=== PATIENT | male | born 1980 | race Caucasian/White ===

== ENCOUNTER → 2019-06-09 14:11 | Outpatient (CLI) | payer OTHER, SELFPAY ==
--- NOTE | 2019-06-09 14:16 | XR_ITS ---
PROCEDURE: XR SHOULDER RT MIN 2V CLINICAL INDICATION: ACUTE PAIN OF RIGHT SHOULDER COMPARISON: No exams were available for comparison FINDINGS: There is no acute fracture dislocation or other focal bony lesion. Joint spaces are preserved. IMPRESSION: No acute findings. Dictated by: Shine Villanueva 06/09/2019 14:59 Electronically signed by Shine Villanueva in [place] 06/09/2019 14:59
== END ==
PROVIDERS: Visit Provider Nurse Practitioner Family
DX: M25.511 Pain in right shoulder (principal)
CPT/HCPCS: 73030

== ENCOUNTER 2020-02-15 13:58 | Emergency (ER) | payer OTHER, SELFPAY ==
[2020-02-15 14:16] VITALS: BP 147/89; PULSE 71; RESP 18; TEMP 36.6; O2SAT 99; BMI 28.5
--- NOTE | 2020-02-15 14:24 | HMH.EDUTC ---
[facility] [place] Disposition Clinical Impression: Strep throat Disposition: Home, Self-Care Condition on Discharge: Good Instructions: Preventing the Spread of Coronavirus Discharge Instructions, DI for Strep Throat Additional Instructions: *Monitor Temp, Over the counter Motrin or Tylenol as directed/as needed Tylenol every 4 hours and Motrin every 6 hours (as long as your family doctor has told you that you can take it) for fever or pain. and straight to ER if unable to lower temp less than 101.0 after medication given *Warm salt water gargles may help to soothe the throat *Throat Lozenges *Warm fluids like tea with honey may help to soothe the throat *Sleep elevated *Humidifier/Vaporizer *If you did not take Penicillin shot or was unable to, start taking antibiotic immediately and make sure that you take it for the FULL length of time although you should start to feel better in 24-48 hours *change toothbrush and toothpaste 24-48 hours after starting to take antibiotics so you do not reinfect yourself Monitor Temp. Tylenol and/or Ibuprofen as needed. ER if fever is no less than 101 despite alternating Tylenol and Ibuprofen * Encourage fluids, water, Gatorade, powerade, pedialyte if /toddler/or child *Cold fluids, popsicles and ice cream may feel good on his throat Follow up IMMEDIATELY for new or worsening symptoms or no Noticeable improvement over the next 48-72 hours. 911 for difficulty breathing or swallowing You were tested for today for COVID19 your test result should be back in the next 24-48 hours, you may call to the [facility] to see if your test results are back in the next 48 hours [phone] [facility] hours are 9am-9pm You was given a handout with instructions for Self Quarantine and Self isolation for while you wait on test results and what to do if they are positive If you are positive the Health Dept will be contacting you also Prescriptions: Amoxicillin [Amoxicillin 500mg Cap] 500 mg PO BID 10 Days #20 cap Transmission Status: Pending to [facility] Referrals: Mario Scott APRN [Primary Care Provider] - As needed Time of Disposition: 14:53 Medical Decision Making - Patrick Inquiry Pt receiving controlled substance: No Patrick was queried for this patient: No Vital Signs: 02/15/20 14:16 Temperature 97.8 F Temperature Source Oral Pulse Rate [Radial] 71 Respiratory Rate 18 Blood Pressure [Right Arm] 147/89 H Blood Pressure Mean [Right Arm] 108 Blood Pressure Source [Right Arm] Automatic Cuff Blood Pressure Position [Right Arm] Sitting 02 Sat by Pulse Oximetry 99 Oxygen Delivery Method Room Air - Lab Data Lab results reviewed: Yes: I reviewed the patient's lab results. Orders (Tests/Meds): ORDERS Category Date Time Status Covid-19 Nasal PCR Sendout [facility] Stat [facility] 02/15/20 14:17 Ordered [facility] [place] HPI - General Stated complaint: weakness, soa Time Seen by Provider: 02/15/20 14:24 Mode of Arrival: Ambulatory Source of Information: Patient Limitations: No Limitations Description of Symptoms (Recalled from Triage Doc. by RN): weak, slight heavy breathing x 2 days HEENT Symptoms (Recalled from RN notes): Yes Resp Symptoms (Recalled from RN notes): No Skin Symptoms (Recalled from RN notes): No MS Symptoms (Recalled from RN notes): No Functional Status (Recalled from RN notes): wnl - History of Present Illness Provider Complaint: Patient state that he has been feeling weak, tired and achy all over State that the last time he felt like this he had the flu States that he hasnt had any fever or shortness of breath but last night felt like he a little burning in his throat and chest area like he had before with bronchitis. Denies chest pain denies shortness of breath - Related Data Previous Rx's Medication Instructions Recorded Amoxicillin [Amoxicillin 500mg 500 mg PO BID 10 Days #20 cap 02/15/20 Cap] cetirizine 10 mg tablet 10 mg PO DAILY #30 tab 02/15/20 montelukast 10 mg tablet
[2020-02-15 15:02] VITALS: BP 147/89; PULSE 71; RESP 18; TEMP 36.6; O2SAT 99
[2020-02-15 20:17] LABS: UTC Strep Screen (Rapid) Positive (Negative)
[2020-02-15 20:18] LABS: UTC Influenza A Antigen Negative (Negative); UTC Influenza B Antigen Negative (Negative)
[2020-02-17 12:39] LABS: Covid-19 Nasal PCR Sendout Lex Not Detected
== END 2020-02-15 15:05 | disposition home or self-care (01) ==
PROVIDERS: Emergency Provider Nurse Practitioner; PCP Nurse Practitioner Family
DX: J02.0 Streptococcal pharyngitis (principal); Z20.828 Contact with and (suspected) exposure to other viral communicable diseases
CPT/HCPCS: 87804; 87880; 99202; U0004

== ENCOUNTER 2021-02-13 17:30 | Emergency (ER) | payer OTHER, SELFPAY ==
[2021-02-13 17:50] VITALS: BP 146/91; PULSE 82; RESP 22; TEMP 37.4; O2SAT 100; BMI 32.8
[2021-02-13 18:02] LABS: UTC Strep Screen (Rapid) Positive (Negative)
--- NOTE | 2021-02-13 18:10 | HMH.EDUTC ---
[facility] [place] Clinical Impression: Strep throat Disposition: Home, Self-Care Condition on Discharge: Good Instructions: Strep Throat, DI for Strep Throat, Amoxicillin Additional Instructions: *Monitor Temp, Over the counter Motrin or Tylenol as directed/as needed Tylenol every 4 hours and Motrin every 6 hours (as long as your family doctor has told you that you can take it) for fever or pain. and straight to ER if unable to lower temp less than 101.0 after medication given *Warm salt water gargles may help to soothe the throat *Throat Lozenges *Warm fluids like tea with honey may help to soothe the throat *Sleep elevated *Humidifier/Vaporizer *If you did not take Penicillin shot or was unable to, start taking antibiotic immediately and make sure that you take it for the FULL length of time although you should start to feel better in 24-48 hours *change toothbrush and toothpaste 24-48 hours after starting to take antibiotics so you do not reinfect yourself Monitor Temp. Tylenol and/or Ibuprofen as needed. ER if fever is no less than 101 despite alternating Tylenol and Ibuprofen * Encourage fluids, water, Gatorade, powerade, pedialyte if /toddler/or child *Cold fluids, popsicles and ice cream may feel good on his throat Follow up IMMEDIATELY for new or worsening symptoms or no Noticeable improvement over the next 48-72 hours. 911 for difficulty breathing or swallowing Prescriptions: Amoxicillin [Amoxicillin 875MG Tab] 875 mg PO Q12H #20 tab Transmission Status: Pending to [facility] Fluticasone Propionate [Flonase 50mcg nasal spray 16gm] 1 spr NS DAILY #1 each Transmission Status: Pending to [facility] methylPREDNISolone [Medrol 4mg tab] 4 mg PO DIRECTED #21 tab Transmission Status: Pending to [facility] Referrals: Mario Scott APRN [Primary Care Provider] - Time of Disposition: 18:18 Medical Decision Making - Patrick Inquiry Pt receiving controlled substance: No Patrick was queried for this patient: No Vital Signs: 02/13/21 17:50 Temperature 99.3 F Temperature Source Oral Pulse Rate [Left] 82 Respiratory Rate 22 Blood Pressure [Right Arm] 146/91 H Blood Pressure Mean [Right Arm] 109 02 Sat by Pulse Oximetry 100 - Lab Data Lab results reviewed: Yes: I reviewed the patient's lab results. Lab Results 02/13/21 17:52: Strep Scn Rapid Clinic Positive A [facility] [place] HPI - General Stated complaint: sore throat,cough Time Seen by Provider: 02/13/21 18:10 Mode of Arrival: Ambulatory Limitations: No Limitations Description of Symptoms (Recalled from Triage Doc. by RN): pt /o nasal drainage, sore throat and weakness x3 days. HEENT Symptoms (Recalled from RN notes): Yes (nasal drainage, sore throat and weak) Resp Symptoms (Recalled from RN notes): No Skin Symptoms (Recalled from RN notes): No MS Symptoms (Recalled from RN notes): No Functional Status (Recalled from RN notes): wnl - History of Present Illness Provider Complaint: Patient state that he has been having sore throat, sinus congestion and drainage and feeling achy State that he feels like he did when he had strep throat before so he came in to get checked - Related Data Previous Rx's Medication Instructions Recorded Amoxicillin [Amoxicillin 500mg 500 mg PO BID 10 Days #20 cap 02/15/20 Cap] cetirizine 10 mg tablet 10 mg PO DAILY #90 tab 03/09/20 montelukast 10 mg tablet See Rx Instructions .ROUTE 10/02/20 .COMPLEX #90 tab Amoxicillin [Amoxicillin 875MG 875 mg PO Q12H #20 tab 02/13/21 Tab] Fluticasone Propionate [Flonase 1 spr NS DAILY #1 each 02/13/21 50mcg nasal spray 16gm] methylPREDNISolone [Medrol 4mg 4 mg PO DIRECTED #21 tab 02/13/21 tab] Allergies Allergy/AdvReac Type Severity Reaction Status Date / Time No Known Allergies Allergy Verified 12/22/19 16:08 - Worker's Comp Is this a Worker's Comp case?: No [facility] History - Hepatitis A Screen Drug use
[2021-02-13 18:47] VITALS: BP 146/91; PULSE 82; RESP 24; TEMP 37.4
== END 2021-02-13 18:49 | disposition home or self-care (01) ==
PROVIDERS: Emergency Provider Nurse Practitioner; PCP Nurse Practitioner Family
DX: J02.0 Streptococcal pharyngitis (principal)
CPT/HCPCS: 87880; 99202; G0463

== ENCOUNTER 2021-04-13 11:54 | Emergency (ER) | payer OTHER, SELFPAY ==
[2021-04-13 11:55] VITALS: BP 141/92; PULSE 72; RESP 18; TEMP 37; O2SAT 98; BMI 32.5
--- NOTE | 2021-04-13 12:17 | HMH.EDUTC ---
[facility] [place] Disposition Clinical Impression: Sinusitis Qualifiers: Sinusitis location: unspecified location Chronicity: acute Recurrence: non-recurrent Qualified Code(s): J01.90 - Acute sinusitis, unspecified Disposition: Home, Self-Care Condition on Discharge: Good Instructions: DI for Sinusitis Additional Instructions: Drink plenty of fluids. Take tylenol or ibuprofen for pain or fever. Take the medications as directed. Follow up with your regular doctor. GO TO THE ER FOR ANY WORSENING SYMPTOMS Don't start the oral steroids until tomorrow, since you had the shot here today. Prescriptions: Amoxicillin/Potassium Clav [Augmentin 875-125 Tablet] 1 tab PO Q12H 10 Days #20 tab Transmission Status: Pending to Clinic Pharm[facility] Benzonatate [Benzonatate 100mg cap] 100 mg PO TIDP PRN #30 cap PRN Reason: Cough Transmission Status: Pending to [facility] methylPREDNISolone [Medrol] 4 mg PO DIRECTED 6 Days #21 packet Transmission Status: Pending to [facility] Referrals: Mario Scott APRN [Primary Care Provider] - Time of Disposition: 12:35 Medical Decision Making - Medical Records Medical records reviewed: No: I reviewed the patient's medical records. - Patrick Inquiry Pt receiving controlled substance: No Vital Signs: 04/13/21 11:55 Temperature 98.6 F Temperature Source Oral Pulse Rate [Right Brachial] 72 Respiratory Rate 18 Blood Pressure [Right Arm] 141/92 H Blood Pressure Mean [Right Arm] 108 Blood Pressure Source [Right Arm] Automatic Cuff Blood Pressure Position [Right Arm] Sitting 02 Sat by Pulse Oximetry 98 Oxygen Delivery Method Room Air [facility] [place] HPI - General Stated complaint: LEON, chest congestion Time Seen by Provider: 04/13/21 12:18 Mode of Arrival: Ambulatory Source of Information: Patient Limitations: No Limitations Description of Symptoms (Recalled from Triage Doc. by RN): PATIENT C/O COUGH AND SINUS CONGESTION SINCE FRIDAY HEENT Symptoms (Recalled from RN notes): Yes Resp Symptoms (Recalled from RN notes): Yes Skin Symptoms (Recalled from RN notes): No MS Symptoms (Recalled from RN notes): No Functional Status (Recalled from RN notes): WNL - History of Present Illness Provider Complaint: He states that for the past 5 days he has had sinus congestion, nasal congestion, and ear pressure. He feels like he has a sinus infection. He denies any known exposure to covid-19. He denies any fever/chills/body aches/ shortness of breath. - Related Data Previous Rx's Medication Instructions Recorded Amoxicillin [Amoxicillin 500mg 500 mg PO BID 10 Days #20 cap 02/15/20 Cap] cetirizine 10 mg tablet 10 mg PO DAILY #90 tab 03/09/20 montelukast 10 mg tablet See Rx Instructions .ROUTE 10/02/20 .COMPLEX #90 tab Amoxicillin [Amoxicillin 875MG 875 mg PO Q12H #20 tab 02/13/21 Tab] Fluticasone Propionate [Flonase 1 spr NS DAILY #1 each 02/13/21 50mcg nasal spray 16gm] methylPREDNISolone [Medrol 4mg 4 mg PO DIRECTED #21 tab 02/13/21 tab] Amoxicillin/Potassium Clav 1 tab PO Q12H 10 Days #20 tab 04/13/21 [Augmentin 875-125 Tablet] Benzonatate [Benzonatate 100mg 100 mg PO TIDP PRN #30 cap 04/13/21 cap] methylPREDNISolone [Medrol] 4 mg PO DIRECTED 6 Days #21 04/13/21 packet Allergies Allergy/AdvReac Type Severity Reaction Status Date / Time No Known Allergies Allergy Verified 12/22/19 16:08 - Worker's Comp Is this a Worker's Comp case?: No H History - Hepatitis A Screen Drug use history?: No High risk sexual behaviors?: No History of sexually transmitted infection?: No Currently employed?: No Childcare worker?: No Do you have indoor plumbing?: Yes Do you have electricity?: Yes Attestation statement:: This patient has been screened for Hepatitis A risk factors. I have reviewed the patient's past medical history: Yes Medical History: Reports:: Anxiety Other Surgeries: Yes: No Previous Surgery - Socia
[2021-04-13 12:33] VITALS: BP 141/92; PULSE 72; RESP 18; TEMP 37; O2SAT 98
== END 2021-04-13 12:42 | disposition home or self-care (01) ==
PROVIDERS: Emergency Provider Nurse Practitioner Family; PCP Nurse Practitioner Family
DX: J01.90 Acute sinusitis, unspecified (principal); U07.1 COVID-19; F41.9 Anxiety disorder, unspecified
CPT/HCPCS: 96372; 99202; C9803; G0463; J0696; U0003; U0005

== ENCOUNTER 2021-06-13 14:12 | Emergency (ER) | payer OTHER, SELFPAY ==
[2021-06-13 14:15] VITALS: BP 146/93; PULSE 89; RESP 19; TEMP 36.6; O2SAT 97; BMI 30.7
--- NOTE | 2021-06-13 14:32 | HMH.EDUTC ---
[facility] [place] Clinical Impression: Fatigue Qualifiers: Fatigue type: unspecified Qualified Code(s): R53.83 - Other fatigue Disposition: Home, Self-Care Condition on Discharge: Good Instructions: Vertigo, DI for Fatigue Additional Instructions: Make sure to use your flonase as prescribed Follow up with your Family Doctor if symptom persist and no improvement Return if needed Monitor blood pressure and record then follow up with your Family Doctor for further treatment and evaluation Straight to ER if any life threatening symptoms Referrals: Mario Scott APRN [Primary Care Provider] - As needed Time of Disposition: 14:51 Medical Decision Making - Patrick Inquiry Pt receiving controlled substance: No Patrick was queried for this patient: No Vital Signs: 06/13/21 14:15 06/13/21 14:50 Temperature 97.9 F 97.9 F Temperature Source Oral Pulse Rate 89 Pulse Rate [Left Brachial] 89 Respiratory Rate 19 19 Blood Pressure 146/93 H Blood Pressure [Left Arm] 146/93 H Blood Pressure Mean [Left Arm] 110 Blood Pressure Source [Left Arm] Automatic Cuff Blood Pressure Position [Left Arm] Sitting 02 Sat by Pulse Oximetry 97 Oxygen Delivery Method Room Air - Lab Data Lab Results 06/13/21 14:22: Group A Strep Rapid Negative 06/13/21 14:22: Influenza Type A Ag Negative, Influenza Type B Ag Negative Orders (Tests/Meds): ORDERS Category Date Time Status Strep Screen Confirmation Stat Micro 06/13/21 14:22 Received [facility] [place]PI - General Stated complaint: weakness, lightheadness Time Seen by Provider: 06/13/21 14:32 Mode of Arrival: Ambulatory Source of Information: Patient Limitations: No Limitations Description of Symptoms (Recalled from Triage Doc. by RN): PATIENT C/O WEAKNESS AND FEELING LIGHT-HEADED X 2-3 DAYS HEENT Symptoms (Recalled from RN notes): Yes Resp Symptoms (Recalled from RN notes): No Skin Symptoms (Recalled from RN notes): No MS Symptoms (Recalled from RN notes): No Functional Status (Recalled from RN notes): WNL - History of Present Illness Provider Complaint: Patient states that he has been feeling weak, tired and achy and at times if he stands up quickly he feels a little light headed at times but it has come and gone States that last time he felt like this he had strep throat so he came in to get checked out - Related Data Home Medications Medication Instructions Recorded Confirmed Montelukast Sodium [Singulair] 10 mg PO DAILY 06/13/21 06/13/21 Allergies Allergy/AdvReac Type Severity Reaction Status Date / Time No Known Allergies Allergy Verified 12/22/19 16:08 - Worker's Comp Is this a Worker's Comp case?: No H History - Hepatitis A Screen Drug use history?: No High risk sexual behaviors?: No History of sexually transmitted infection?: No Currently employed?: No Childcare worker?: No Do you have indoor plumbing?: Yes Do you have electricity?: Yes Attestation statement:: This patient has been screened for Hepatitis A risk factors. I have reviewed the patient's past medical history: Yes Medical History: Reports:: Anxiety Other Surgeries: Yes: No Previous Surgery - Social History Smoking Status: Never smoker Alcohol Intake: never Occupational Status: other Housing: house - Psychiatric History Pschychiatric History:: Reports:: Anxiety ROS Obtained: Yes All systems reviewed & no additional complaints, Yes Systems reviewed as appropriate & no additional complaints - Constitutional Constitutional: Reports system reviewed and no additional complaints, except as docu, Reports body ache, Reports chills, Reports fatigue - ENT Ears, Nose, Mouth, and Throat: Reports system reviewed and no additional complaints, except as docu, Reports dizziness - Cardiovascular Cardiovascular: Reports system reviewed and no additional complaints, except as docu - Respiratory Respiratory: Reports system reviewed and no additional complaints, except as doc
[2021-06-13 14:33] LABS: UTC Influenza A Antigen Negative (Negative)
[2021-06-13 14:34] LABS: UTC Influenza B Antigen Negative (Negative)
[2021-06-13 14:36] LABS: Strep Scrn Group A (Rapid) Negative (Negative)
[2021-06-13 14:50] VITALS: BP 146/93; PULSE 89; RESP 19; TEMP 36.6; O2SAT 97
== END 2021-06-13 14:53 | disposition home or self-care (01) ==
PROVIDERS: Emergency Provider Nurse Practitioner; PCP Nurse Practitioner Family
DX: R42 Dizziness and giddiness (principal); R53.1 Weakness; R53.83 Other fatigue; F41.9 Anxiety disorder, unspecified; Z79.51 Long term (current) use of inhaled steroids; Z79.52 Long term (current) use of systemic steroids; Z79.899 Other long term (current) drug therapy
CPT/HCPCS: 87430; 87804; 99213; G0463

== ENCOUNTER 2021-08-21 10:18 | Emergency (ER) | payer OTHER, SELFPAY ==
[2021-08-21 10:40] VITALS: BP 172/89; PULSE 76; RESP 17; TEMP 36.6; O2SAT 100; BMI 21.4
--- NOTE | 2021-08-21 11:09 | HMH.EDUTC ---
[facility] [place] [facility] [place] Clinical Impression: Bronchitis Sinusitis Qualifiers: Sinusitis location: unspecified location Chronicity: unspecified Qualified Code(s): J32.9 - Chronic sinusitis, unspecified Disposition: Home, Self-Care Condition on Discharge: Good Instructions: Sinusitis, DI for Sinusitis Additional Instructions: ? Start antibiotic today. Be sure to complete entire prescription even if feeling better ? Monitor temp. Tylenol every 4 hours as needed and / or ibuprofen every 6 hours as needed ( As long as your primary care physician has told you that it ok to take both. For fever/aches/pains ER if no less than 101 despite Tylenol or Motrin ? Humidifier/vaporizer or hot steamy shower ? Mucinex during the day for your cough and cough suppressant only at night. Be sure to drink lots of water. Insurance may not cover a prescriptions for mucinex. Might be cheaper to get 400mg tablets and take 2 tablet in the morning, mid-day and evening with lots of water. *Tessalon Perles will not cause drowsiness but use at bedtime to help stop cough so that you may get some rest. *Start steroid today. Helps with inflammation therefore, cough and wheezing. Follow directions on the package. Reviewed side effects. Patient reports taking them before. Follow up IMMEDIATELY for new or worsening of symptoms OR no noticeable improvement over the next 48-72 hours. 911 immediately for any life threatening symptoms such as chest pain or difficulty breathing Prescriptions: Benzonatate [Benzonatate 100mg cap] 100 mg PO Q8HP PRN #15 cap PRN Reason: Cough Transmission Status: Pending to [facility] Fluticasone Propionate [Flonase 50mcg nasal spray 16gm] 1 - 2 spr NS DAILY #1 each Transmission Status: Pending to [facility] predniSONE [Prednisone 20mg Tab] 20 mg PO BID 5 Days #10 tab Transmission Status: Pending to [facility] Azithromycin [Z-Enrico 250mg Tab] 250 mg PO DIRECTED #6 tab Transmission Status: Pending to [facility] Referrals: Mario Scott APRN [Primary Care Provider] - As needed Time of Disposition: 11:20 Medical Decision Making - Patrick Inquiry Pt receiving controlled substance: No Patrick was queried for this patient: No Vital Signs: 08/21/21 10:40 Temperature 97.8 F Temperature Source Oral Pulse Rate [Left Radial] 76 Respiratory Rate 17 Blood Pressure [Right Arm] 172/89 H Blood Pressure Mean [Right Arm] 116 02 Sat by Pulse Oximetry 100 [facility] [place] [facility] [place] HPI - General Stated complaint: congestion Time Seen by Provider: 08/21/21 11:09 Description of Symptoms (Recalled from Triage Doc. by RN): patient comes in for congestion and watery eyes. patient states that he has bad allergies, but nothing has been helping. HEENT Symptoms (Recalled from RN notes): Yes Resp Symptoms (Recalled from RN notes): Yes Skin Symptoms (Recalled from RN notes): No MS Symptoms (Recalled from RN notes): No Functional Status (Recalled from RN notes): wnl - History of Present Illness Provider Complaint: Patient states that he has been having sinus congestion and pressure and feels like it is trying to move into his chest area States that he isnt cough much up States that he has been having itchy watery eyes too and thought it may be his allergies but it has continued to get worse and worried it may turn into pneumonia if he didnt come in - Related Data Home Medications Medication Instructions Recorded Confirmed Cetirizine HCl 10 mg PO DAILY 08/21/21 08/21/21 Omeprazole 40 mg PO DAILY 08/21/21 08/21/21 Previous Rx's Medication Instructions Recorded amoxicillin 875 mg tablet 875 mg PO BID #20 tab 06/21/21 fluticasone propionate 50 1 spray INTRANASAL DAILY #16 g 06/21/21 mcg/actuation nasal spray,suspension montelukast 10 mg tablet 10 mg PO DAILY #90 tab 06/21/21 prednisone 20 mg tablet 20 mg PO BID #10 tab 06/21/21 pseudoephedrine HCl 240 mg 240 mg PO DAILY PRN #10 tab 06/21/21 tablet,extended
[2021-08-21 11:25] VITALS: BP 172/89; PULSE 76; RESP 17; TEMP 36.6
== END 2021-08-21 11:26 | disposition home or self-care (01) ==
PROVIDERS: Emergency Provider Nurse Practitioner; PCP Nurse Practitioner Family
DX: J32.9 Chronic sinusitis, unspecified (principal); J30.9 Allergic rhinitis, unspecified; F41.9 Anxiety disorder, unspecified; Z79.51 Long term (current) use of inhaled steroids; Z79.52 Long term (current) use of systemic steroids; Z79.899 Other long term (current) drug therapy
CPT/HCPCS: 99213; G0463

== ENCOUNTER → 2022-03-04 08:56 | Outpatient (CLI) | payer OTHER, SELFPAY ==
--- NOTE | 2022-03-04 08:56 | US_ITS ---
FINAL REPORT CLINICAL HISTORY: epigastric pain FINDINGS: Sonographic images of the abdomen were obtained. The liver has an unremarkable appearance with normal echogenicity. There is fatty infiltration of the liver. There is no evidence of biliary ductal dilatation. The common hepatic duct measures 3 mm, which is within normal limits. Limited images of the pancreas are unremarkable. The spleen measures in the upper limits of normal in size at 12.3 cm in length. The right kidney measures 10.2 cm in length. The left kidney measures 10.4 cm in length. There is normal renal echogenicity. There is no evidence of hydronephrosis. The aorta has an unremarkable appearance. Limited images of the inferior vena cava are unremarkable. No mass is identified in the region of the palpable abnormality at the xiphoid. IMPRESSION: No mass identified in the region of the palpable abnormality at the xiphoid. Fatty liver. Spleen measures in the upper limits of normal in size. Reviewed, Interpreted and Dictated by Tim Macedo III, MD Transcribed by Yoana Almanza Authenticated and . [facility]
== END ==
PROVIDERS: PCP Emergency Medicine; Visit Provider Student in an Organized Health Care Education/Training Program
DX: R10.13 Epigastric pain (principal)
CPT/HCPCS: 76700

== ENCOUNTER → 2022-07-03 09:58 | Outpatient (CLI) | payer OTHER, SELFPAY ==
--- NOTE | 2022-07-03 10:03 | MR_ITS ---
FINAL REPORT CLINICAL HISTORY: mass right epigastrium, right of xyphoid process, marker placed on area. no trauma. 20ml prohance COMPARISON: None FINDINGS: Multiplanar MR imaging of the chest was performed with and without contrast. Images are degraded by motion artifact. The upper abdomen is obscured by the machine artifact. Marker is placed in the region of the xiphoid at the level of the palpable abnormality. No mediastinal mass or fluid collection identified. No axial mass. No pulmonary mass. No mass or fluid collection identified in the region of the marker at the level of the xiphoid. No abnormal contrast enhancement seen. IMPRESSION: No acute process. Reviewed, Interpreted and Dictated by Tim Macedo III, MD Transcribed by Bushra Sanches Authenticated and [facility]
== END ==
PROVIDERS: PCP Emergency Medicine; Visit Provider Nurse Practitioner Family
DX: R22.2 Localized swelling, mass and lump, trunk (principal)
CPT/HCPCS: 71552; A9576

== ENCOUNTER 2022-08-27 16:39 | Emergency (ER) | payer OTHER, SELFPAY ==
[2022-08-27 16:40] VITALS: BP 139/93; PULSE 76; RESP 18; TEMP 36.8; O2SAT 98; BMI 32.3
[2022-08-27 17:03] LABS: UTC Strep Screen (Rapid) Negative (Negative)
--- NOTE | 2022-08-27 17:58 | EXP.UTC ---
Discharge Plan Disposition Patient Disposition: Home, Self-Care Condition: Good Prescriptions Prescriptions: New benzonatate 100 mg capsule 100 mg PO TID PRN (Reason: cough) Qty: 30 0RF azithromycin [Zithromax Z-Enrico] 250 mg tablet See Rx Instructions .ROUTE .COMPLEX 5 Days Qty: 6 0RF Rx Instructions: For 250 mg dose pack: take 500 mg today (day 1), then 250 mg for 4 days (days 2-5) methylprednisolone [Medrol (Enrico)] 4 mg tablets,dose pack See Rx Instructions .Route .COMPLEX 6 Days Qty: 21 0RF Rx Instructions: taper pack; polymyxin B sulf-trimethoprim [Polytrim] 10,000 unit- 1 mg/mL drops 2 drp ophthalmic (eye) Q6H 7 Days Qty: 20 0RF Rx Instructions: while awake; do not exceed 6 doses in 24 hours for 7 days No Action amoxicillin-pot clavulanate 875-125 mg tablet 1 tab PO BID 7 Days Qty: 14 0RF methylprednisolone 4 mg tablets,dose pack See Rx Instructions PO PER PKG DIR Qty: 21 0RF Rx Instructions: PO PER PKG DIR omeprazole 40 mg capsule,delayed release(DR/EC) See Rx Instructions .ROUTE .COMPLEX Qty: 90 3RF Dose Instruction: TAKE ONE CAPSULE BY MOUTH EVERY DAY --SWALLOW WHOLE; DO NOT CRUSH, CHEW, DISSOLVE, CUT, OR BREAK-- Rx Instructions: TAKE ONE CAPSULE BY MOUTH EVERY DAY --SWALLOW WHOLE; DO NOT CRUSH, CHEW, DISSOLVE, CUT, OR BREAK-- cetirizine 10 mg tablet See Rx Instructions .ROUTE .COMPLEX Qty: 90 3RF Dose Instruction: TAKE ONE TABLET BY MOUTH EVERY DAY Rx Instructions: TAKE ONE TABLET BY MOUTH EVERY DAY montelukast 10 mg tablet See Rx Instructions .ROUTE .COMPLEX Qty: 90 3RF Dose Instruction: TAKE ONE TABLET BY MOUTH EVERY DAY FOR ALLERGY SYMPTOMS Rx Instructions: TAKE ONE TABLET BY MOUTH EVERY DAY FOR ALLERGY SYMPTOMS fluticasone propionate 120 SPRAY bottle 1 - 2 spr NS DAILY Qty: 1 0RF Referrals Follow up/Referrals: Pako Cruz MD [Primary Care Provider] - See instructions Activity Restrictions/Add. Instructions Additional Instructions/Restrictions: Use drops as prescribed for your eyes wash hands well before and after applying Take medication as prescribed *Monitor Temp, Over the counter Motrin or Tylenol as directed/as needed Tylenol every 4 hours and Motrin every 6 hours (as long as your family doctor has told you that you can take it) for fever or pain. and straight to ER if unable to lower temp less than 101.0 after medication given *Warm salt water gargles may help to soothe the throat *Throat Lozenges? *Warm fluids like tea with honey may help to soothe the throat? *Sleep elevated *Humidifier/Vaporizer Your throat swab was sent for culture. Those results are typically sent to your primary care. Be sure to follow up in 2-3 days with your family doctor/primary care physician if no improvement so they can review those result and treat if necessary. If you don?t have a primary care doctor, I recommend you get one but in the mean time, you will have to return to a walk in clinic Follow up IMMEDIATELY for new or worsening symptoms or no Noticeable improvement over the next 48-72 hours. 911 for difficulty breathing or swallowing Clinical Impressions Clinical Impression: Conjunctivitis, Pharyngitis Instructions Patient Instructions: Sore Throat, Conjunctivitis, DI for Conjunctivitis Discharge ED Provider: Tram Brody [facility] General Stated complaint: weakness, sore throat, drainage Mode of Arrival: Ambulatory Source of Information: Patient Limitations: No Limitations Time Seen by Provider: 08/27/22 17:15 Description of Symptoms (Recalled from Triage Doc. by RN): Complaint of sore throat, sinus drainage, and weakness x 1 week. HEENT Symptoms (Recalled from RN notes): Yes Resp Symptoms (Recalled from RN notes): No Skin Symptoms (Recalled from RN notes): No MS Symptoms (Recalled from RN notes): No Functional Status (Recalled from RN notes): wnl His
[2022-08-27 18:05] VITALS: BP 139/93; PULSE 76; RESP 18; TEMP 36.8; O2SAT 98
== END 2022-08-27 18:09 | disposition home or self-care (01) ==
PROVIDERS: Emergency Provider Nurse Practitioner; PCP Emergency Medicine
DX: J02.9 Acute pharyngitis, unspecified (principal); H10.31 Unspecified acute conjunctivitis, right eye; J30.9 Allergic rhinitis, unspecified
CPT/HCPCS: 87880; 99212; 99214; G0463

== ENCOUNTER 2023-01-12 18:51 | Emergency (ER) | payer OTHER, SELFPAY ==
[2023-01-12 19:00] VITALS: BP 137/72; PULSE 92; RESP 18; TEMP 36.9; O2SAT 99; BMI 33.4
--- NOTE | 2023-01-12 19:13 | EXP.UTC ---
Discharge Plan Disposition Patient Disposition: Home, Self-Care Condition: Good Prescriptions Prescriptions: No Action omeprazole 40 mg capsule,delayed release(DR/EC) See Rx Instructions .ROUTE .COMPLEX Qty: 90 3RF Dose Instruction: TAKE ONE CAPSULE BY MOUTH EVERY DAY --SWALLOW WHOLE; DO NOT CRUSH, CHEW, DISSOLVE, CUT, OR BREAK-- Rx Instructions: TAKE ONE CAPSULE BY MOUTH EVERY DAY --SWALLOW WHOLE; DO NOT CRUSH, CHEW, DISSOLVE, CUT, OR BREAK-- cetirizine 10 mg tablet See Rx Instructions .ROUTE .COMPLEX Qty: 90 3RF Dose Instruction: TAKE ONE TABLET BY MOUTH EVERY DAY Rx Instructions: TAKE ONE TABLET BY MOUTH EVERY DAY montelukast 10 mg tablet See Rx Instructions .ROUTE .COMPLEX Qty: 90 3RF Dose Instruction: TAKE ONE TABLET BY MOUTH EVERY DAY FOR ALLERGY SYMPTOMS Rx Instructions: TAKE ONE TABLET BY MOUTH EVERY DAY FOR ALLERGY SYMPTOMS Referrals Follow up/Referrals: Sonia ([facility]),OSITO Martin [Primary Care Provider] - See instructions Activity Restrictions/Add. Instructions Additional Instructions/Restrictions: Keep the wounds clean and dry. Follow up with your regular doctor. Take the antibiotics as directed and apply the topical antibiotics as directed. Make sure you stay in contact with the health department regarding the health of the dog. Watch the wounds for signs of worsening infection, such as worsening redness, drainage, swelling, etc. GO TO THE ER FOR ANY WORSENING SYMPTOMS Clinical Impressions Clinical Impression: Dog bite of right thigh, Need for Tdap vaccination Instructions Patient Instructions: DI for Dog Bite, Mupirocin, Tetanus, Diphtheria, Pertussis (Tdap) Vaccine Discharge ED Provider: Dayne Nunes [facility] [place] General Stated complaint: Ao11/05@1700 dog bite RT leg Time Seen by Provider: 01/12/23 19:12 History of Present Illness Provider Complaint: He states that he was bit by his neighbors dog on his right thigh just before he came in today. His tetanus immunization is out of date. Related Data Previous Rx's Medication Instructions Recorded cetirizine 10 mg tablet See Rx Instructions .Route 06/25/22 .COMPLEX #90 tabs omeprazole 40 mg capsule,delayed See Rx Instructions .Route 06/25/22 release .COMPLEX #90 caps montelukast 10 mg tablet See Rx Instructions .Route 06/26/22 .COMPLEX #90 tabs Allergies Allergy/AdvReac Type Severity Reaction Status Date / Time No Known Allergies Allergy Verified 01/12/23 19:17 [facility] Disclaimer: The information contained in this section may have been updated after the patient was seen, as this information can be updated by other users. Medical History Allergic rhinitis Social History Smoking Status: Never smoker alcohol intake: never current occupational status: other Travel in the last 8 weeks: None housing: house ROS Obtained: Yes All systems reviewed & no additional complaints except as documented Constitutional Constitutional: Denies chills and Denies fever(s) Eyes Eyes: Denies eye discharge ENT Ears, Nose, Mouth, and Throat: Denies dizziness, Denies otalgia and Denies sore throat Cardiovascular Cardiovascular: Denies chest pain Respiratory Respiratory: Denies shortness of breath, Denies chest congestion, Denies cough, Denies stridor and Denies wheezing Gastrointestinal Gastrointestingal: Denies nausea or vomiting Musculoskeletal Musculoskeletal: Reports system reviewed and no additional complaints, except as documented and Denies arthralgias Integumentary/Breasts Skin/Breast: Reports as per HPI Neurologic Neurologic: Denies dizziness and Denies paresthesias Allergic/Immunologic Allergic/Immunologic: Denies wheezing Physical Exam General General appearance: alert and in no apparent distress Head Head exam: atraumatic, normocephalic and no
[2023-01-12 19:36] VITALS: BP 137/72; PULSE 92; RESP 18; TEMP 36.9; O2SAT 99
== END 2023-01-12 19:36 | disposition home or self-care (01) ==
PROVIDERS: Emergency Provider Nurse Practitioner Family; PCP Nurse Practitioner Family
DX: S71.151A Open bite, right thigh, initial encounter (principal); J30.9 Allergic rhinitis, unspecified; W54.0XXA Bitten by dog, initial encounter; Z23 Encounter for immunization
CPT/HCPCS: 90471; 90715; 96372; 99212; 99214; G0463

== ENCOUNTER 2023-02-08 09:58 | Emergency (ER) | payer OTHER, SELFPAY ==
[2023-02-08 10:25] VITALS: BP 175/91; PULSE 87; RESP 18; TEMP 36.9; O2SAT 96; BMI 33.2
--- NOTE | 2023-02-08 11:13 | EXP.UTC ---
Discharge Plan Disposition Patient Disposition: Home, Self-Care Condition: Good Prescriptions Prescriptions: No Action omeprazole 40 mg capsule,delayed release(DR/EC) See Rx Instructions .ROUTE .COMPLEX Qty: 90 3RF Dose Instruction: TAKE ONE CAPSULE BY MOUTH EVERY DAY --SWALLOW WHOLE; DO NOT CRUSH, CHEW, DISSOLVE, CUT, OR BREAK-- Rx Instructions: TAKE ONE CAPSULE BY MOUTH EVERY DAY --SWALLOW WHOLE; DO NOT CRUSH, CHEW, DISSOLVE, CUT, OR BREAK-- cetirizine 10 mg tablet See Rx Instructions .ROUTE .COMPLEX Qty: 90 3RF Dose Instruction: TAKE ONE TABLET BY MOUTH EVERY DAY Rx Instructions: TAKE ONE TABLET BY MOUTH EVERY DAY montelukast 10 mg tablet See Rx Instructions .ROUTE .COMPLEX Qty: 90 3RF Dose Instruction: TAKE ONE TABLET BY MOUTH EVERY DAY FOR ALLERGY SYMPTOMS Rx Instructions: TAKE ONE TABLET BY MOUTH EVERY DAY FOR ALLERGY SYMPTOMS Referrals Follow up/Referrals: Provider,Referral, MD [Primary Care Provider] - See instructions Activity Restrictions/Add. Instructions Additional Instructions/Restrictions: No sign of a bacterial infection. Likely viral. Viruses can take 7-14 days to run their course. Nasal saline and bulb syringe or nose Nighat to remove nasal drainage to help with nasal congestion. Hard to eat, drink, sleep with nasal congestion so important to keep this cleaned out. Monitor temp. Tylenol or Motrin as needed for pain or fever Encourage fluids, water, Gatorade, Powerade, Pedialyte if /toddler/child Warm salt water gargles Warm fluids Sore throat lozenges Sleep elevated Humidifier/vaporizer Follow-up immediately for new or worsening symptoms or no noticeable improvement over the next 48-72 hours. Clinical Impressions Clinical Impression: Upper respiratory infection Qualifiers: URI type: unspecified viral URI Qualified Code(s): J06.9 - Acute upper respiratory infection, unspecified Instructions Patient Instructions: DI for Viral Upper Respiratory Infection -- Adult Discharge ED Provider: Sonia ([facility] [place] HPI General Stated complaint: sinus pressure,runny nose Mode of Arrival: Ambulatory Source of Information: Patient Limitations: No Limitations Time Seen by Provider: 02/08/23 11:13 Description of Symptoms (Recalled from Triage Doc. by RN): sinus pressure, LEON, and runny nose HEENT Symptoms (Recalled from RN notes): Yes Resp Symptoms (Recalled from RN notes): No Skin Symptoms (Recalled from RN notes): No MS Symptoms (Recalled from RN notes): No Functional Status (Recalled from RN notes): n/a History of Present Illness Provider Complaint: 43 yr old male presents for sinus pressure, LEON, clear nasal drainage and runny nose. pt states he feels its moving to his chest Related Data Previous Rx's Medication Instructions Recorded cetirizine 10 mg tablet See Rx Instructions .Route 06/25/22 .COMPLEX #90 tabs omeprazole 40 mg capsule,delayed See Rx Instructions .Route 06/25/22 release .COMPLEX #90 caps montelukast 10 mg tablet See Rx Instructions .Route 06/26/22 .COMPLEX #90 tabs Allergies Allergy/AdvReac Type Severity Reaction Status Date / Time No Known Allergies Allergy Verified 02/08/23 10:39 Worker's Comp Is this a Worker's Comp case?: No [facility] Disclaimer: The information contained in this section may have been updated after the patient was seen, as this information can be updated by other users. Medical History , [employer]) Allergic rhinitis Social History , [employer]ER) Smoking Status: Never smoker alcohol intake: never current occupational status: other Travel in the last 8 weeks: None housing: house ROS Obtained: Yes All systems reviewed & no additional complaints except as documented Constitutional Constitutional: Reports system reviewed and no additional complaints, except as documented a
[2023-02-08 11:31] VITALS: BP 175/91; PULSE 87; RESP 18; TEMP 36.9; O2SAT 96
== END 2023-02-08 11:31 | disposition home or self-care (01) ==
PROVIDERS: Emergency Provider Nurse Practitioner Family
DX: R51.9 Headache, unspecified (principal); J06.9 Acute upper respiratory infection, unspecified; R09.81 Nasal congestion; R09.82 Postnasal drip; B34.9 Viral infection, unspecified; J30.9 Allergic rhinitis, unspecified
CPT/HCPCS: 96372; 99212; 99214; G0463

== ENCOUNTER 2023-03-13 22:50 | Outpatient (CLI) | payer OTHER, SELFPAY ==
[2023-03-13 13:56] LABS: Adenovirus,PCR Not Detected (NotDetected); Coronavirus 19, PCR Not Detected (NotDetected); Coronavirus 229E Not Detected (NotDetected); Coronavirus NL63 Not Detected (NotDetected); Coronavirus OC43 Not Detected (NotDetected); Coronovirus HKU1,PCR Not Detected (NotDetected); Human Metapneumovirus Not Detected (NotDetected); Influenza A, PCR Not Detected (NotDetected); Influenza AH1, 2009 Not Detected (NotDetected); Influenza AH1, PCR Not Detected (NotDetected); Influenza AH3,PCR Not Detected (NotDetected); Influenza B, PCR Not Detected (NotDetected); Parainfluenza 1, PCR Not Detected (NotDetected); Parainfluenza 3, PCR Not Detected (NotDetected); Parainfluenza 4, PCR Not Detected (NotDetected); Respiratory Syncytial Virus Not Detected (NotDetected); Rhinovirus/Enterovirus Not Detected (NotDetected)
[2023-03-13 15:42] LABS: Parainfluenza 2, PCR Detected (NotDetected)
== END 2023-03-13 23:59 ==
LOC: LAB.DROPOF 22:51
PROVIDERS: PCP Internal Medicine; Visit Provider Internal Medicine
DX: J02.9 Acute pharyngitis, unspecified (principal); R05.1 Acute cough; J12.2 Parainfluenza virus pneumonia
CPT/HCPCS: 87070; 87632; 87635

== ENCOUNTER 2023-10-24 12:25 | Outpatient (CLI) | payer OTHER, SELFPAY ==
--- NOTE | 2023-10-24 12:30 | XR_ITS ---
FINAL REPORT CLINICAL HISTORY: right lower back pain FINDINGS: LUMBAR SPINE Three views demonstrate no acute fracture. There are mild degenerative changes with osteophytes. There is no malalignment. IMPRESSION: Mild degenerative changes. Reviewed, Interpreted and Dictated by Tim Macedo III, MD Transcribed by Yoana Almanza Authenticated and [facility]
== END 2023-10-24 23:59 | disposition home or self-care (01) ==
LOC: RAD 12:26
PROVIDERS: PCP Nurse Practitioner Family; Visit Provider Nurse Practitioner Family
DX: M54.50 Low back pain, unspecified (principal)
CPT/HCPCS: 72100

== ENCOUNTER 2023-11-14 08:00 | Outpatient (RCR) | payer OTHER, SELFPAY ==
--- NOTE | 2023-11-03 13:54 | HMH.PTOPEV ---
PT Outpatient Evaluation Rehab PT Outpatient Evaluation Start: 11/03/23 09:11 Freq: Status: Active Protocol: Document 11/03/23 09:11 HEATHER (Rec: 11/03/23 13:54 HEATHER [id number]) E-signed By Bonita Nunes, PT Outpatient Therapy Subjective History Subjective History Pt is a 43 y/o male who reports onset of right-sided LBP and posterior leg pain 3-4 weeks ago. Pt reports intermittent sharp shooting pain from his posterior hip that radiates to his posterior knee. Pt also reports this sensation as pulling and tight. Pt denies more distal LE symptoms, numbness/tingling or b/b dysfunction. Pt had a lumbar spine xray on 10/24/23 with impression of Mild degenerative changes. Pt reports he is scheduled to have a lumbar spine MRI on 12/31. Pt reports pain is aggravated by transfers, putting on his shoes/socks, bending, lifting and prolonged sitting/standing. Pt reports pain improves with walking and propping his feet up in a recliner. Pt reports he was prescribed muscle relaxers and just finished taking oral steroids which did not improve his symptoms. Pt denies further comorbidities to report. Occupation: [employer] New diagnosis of cancer in past 12 No months? Chief Complaint Pain,Stiff Symptom Type Sharp,Shooting Symptoms Relieved By Rest/Positioning,Ice Symptoms Aggravated By Sitting,Standing,Bending/ Stooping,Lifting Current Functional Limitations Lifting,Housework,Dressing, Driving,Standing,Sitting, Squatting,Recreation Activity, Bending/Stooping Symptom Description Intermittent Level of pain today (0-10) 0 Pain scale - at its best (0-10) 0 Pain scale - at its worst (0-10) 9 Lumbopelvic Eval Posture Lumbar Spine Posture Standing Position Decreased Lordosis Palapation tenderness bilateral lumbar spinal tenderness Yes: L4-5, L5-S1 buttock tenderness Yes: R piriformis Lumbar/Sacral Palpation Findings Tenderness Lumbar/Sacral Palpation Overall Comment 1/4 TTP Accessory Movement L-spine Vertebrae Accessory Movements Central P/A [place] that Elicit Symptoms L4 bilateral L5 bilateral S1 bilateral Range of Motion Lumbar Spine Active Flexion Range of 55 Motion (degrees) Lumbar Spine Active Extension Range of 15 Motion (degrees) Left Lumbar Spine Lateral Flexion Active 20 Range of Motion (degrees) Right Lumbar Spine Lateral Flexion 15 Active Range of Motion (degrees) Manual Muscle Test Bilateral Knee Extension Strength Grade 5 Normal Knee Flexion Strength Grade 5 Normal Hip Flexion Strength Grade 5 Normal Hip Abduction Strength Grade 5 Normal Hip Adduction Strength Grade 5 Normal Hip Extension Strength Grade 4 Good Ankle Dorsiflexion Strength Grade 5 Normal DTR Rt Patellar 1+ Lt Patellar 1+ Altered Sensation Bilateral Comment equal and intact to light touch sensation bilaterally Special Tests Hip Scouring (Quadrant) Test Negative Right Hip Ochoa (KALE) Test Negative Right Sciatic Nerve Tension Test Positive Right Unilateral Straight Leg Raise (Lasegue) Positive Right Test Oswestry Index Section 1 Pain Intensity The pain comes and goes and is severe Section 2 Personal Care (Washing,Dresing) increase the pain and I find it necessary to change my way of doing it Section 3 Lifting I can only lift very light weights at most Section 4 Walking I have some pain when walking but it does not increase with distance Section 5 Sitting Pain prevents me from sitting for more than 10 minutes Section 6 Standing I have some pain on standing, but it does not increase with time Section 7 Sleeping I get pain in bed, but it does not prevent me from sleeping well Section 8 Social Life Pain has restricted my social life and I do not go out often Section 9 Traveling I get extra pain while traveling, but it does not compel me to seek al Section 10 Changing Degreee of Pain My pain is gradually getting worse Score and Risk Level Oswestry Sc 28 Oswestry Risk Level Severe Disability Outpatient Therapy Assessment Impairments Problems/Impairmments Palpation Tenderness,Impaired Range of Motion,Impaired Strength,Impaired Transfers, Impaired Standing,Impaired Sitting,Impaired Driving, Impaired Lifting,Impaired Dressing,Impaired Household Care,Impaired Squatting, Impaired Bending,Impaired Recreational Activities, Impaired Work Activities, Subjective C/O Pain,Impaired Self Care/Self Management Prognosis Rehab Potential Good Clinical Impression Consistent with Diagnosis Yes Short Term Goals Number of Weeks 3 Increase Range of Motion Yes: Improve lumbar flexion AROM to at least 65 Improve Ability to Dress Self Yes: report ability to don shoes/socks I with pain 7/10 or less Improve Oswestry Score Yes: Improve score to 23 or less to improve overall QOL Decrease Subjective C/O Pain Yes: Improve pain at worst to 7/10 to improve overall QOL Improve Self Care/Self Management Yes Patient to be Ind w/ HEP Yes Director Dietetics Department Goals Number of Weeks 6 Increase Range of Motion Yes: Improve lumbar AROM flex to 80, ext & LF to 20-25 Increase Strength Yes: Improve hip/core strength to 4+-5/5 grossly to assist with function Improve Transfers Yes: perform sit to stand transfer with pain 5/10 or less Improve Tolerance 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 Improve Oswestry Score Yes: Improve score to 18 or less to improve overall QOL Decrease Subjective C/O Pain Yes: Improve pain at worst to 5/10 to improve overall QOL Outpatient Therapy Plan of Care Treatment Plan May Include Therapeutic Exercise Including Home Yes Exercise Program Manual Therapy Techniques Yes Neuromuscular Re-education Yes Therapeutic Activities to Return to Yes Previous Functional/Work Level ADL/Self Care Education Yes Mechanical Traction Yes Dry Needling Yes Thermal Modalities Yes Electrical Stimulation Yes Ultrasound/Phonophoresis Yes Iontophoresis Yes Massage Yes Eval/Re-Eval Yes Frequency Times per week 2 Duration Number of Weeks 4-6 Addendums This patient is a candidate for social No or vocational rehab? Patient/Guardian verbally acknowledges Yes understanding of treatment program and consents to further treatment? Patient/Guardian verbally acknowledges Yes understanding of diagnosis, prognosis and goals for treatment? Eval Complexity PT Charges [id number] - Low Complexity Shoulder/Elbow Eval Shoulder Objective Measurements Elbow Objective Measurements PHYSICIAN CERTIFICATION: I certify the specified therapy services for Pako Trinh are required, authorized, and reviewed every 30 days.
== END 2023-11-14 08:05 | disposition home or self-care (01) ==
LOC: PT 08:00
PROVIDERS: Visit Provider Nurse Practitioner Family
DX: M54.50 Low back pain, unspecified (principal)
CPT/HCPCS: 97014; 97110; 97140; 97163; G0283

== ENCOUNTER 2023-11-18 07:57 | Outpatient (CLI) | payer OTHER, SELFPAY ==
--- NOTE | 2023-11-18 07:58 | MR_ITS ---
FINAL REPORT CLINICAL HISTORY: LBP with right LE sciatica COMPARISON: None FINDINGS: Multiplanar MR imaging of the lumbar spine was performed without contrast. On the sagittal T2-weighted images, there is disc degeneration at the L5-S1 level. The vertebral alignment is normal. There is no evidence of fracture. No bony mass is identified. The conus has an unremarkable appearance. No significant canal stenosis is identified. L1-2: No significant central canal stenosis or neuroforaminal narrowing. L2-3: No significant central canal stenosis or neuroforaminal narrowing. L3-4: An annular bulge is present with mild right neural foraminal narrowing. L4-5: An annular bulge is present with severe right and mild left neural foraminal narrowing. L5-S1: An annular bulge is present with a right foraminal extruded disc, which produces right S1 nerve root impingement, moderate right and mild left neural foraminal narrowing. IMPRESSION: Lumbar degenerative change, most severe at the L5-S1 level with a right foraminal extruded disc which impinges on the right S1 nerve root and produces moderate right neural foraminal narrowing. Reviewed, Interpreted and Dictated by Tim Macedo III, MD Transcribed by Peyton Bowman Authenticated and [facility]
== END 2023-11-18 23:59 | disposition home or self-care (01) ==
LOC: RAD 07:58
PROVIDERS: PCP Nurse Practitioner Family; Visit Provider Nurse Practitioner Family
DX: M54.50 Low back pain, unspecified (principal)
CPT/HCPCS: 72148

== ENCOUNTER 2023-11-26 09:25 | Outpatient (POV) | payer OTHER, SELFPAY ==
--- NOTE | 2023-11-26 10:15 | EXP.PAIN.OV ---
HPI Data of Consult Patient: new to practice Consult date: 11/26/23 Requesting Physician: Bonita Gallo APRN Primary Care Provider: Magalis Jackson APRN Consult Narrative Reason for consult: Low back pain, right hip pain, right leg pain History of present illness: Mr. Trinh is a 43 year old male who presents today as a new patient. He is a referral from Stacie Jackson's office. Today he rates his pain a 10 out of 10. Patient states he has pain throughout his low back with radiating symptoms into his right hip and right leg. 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 Patient states he immediately had pain and states that has progressively worsened since. Patient states that he initially did try [id number] medications along with heat and ice and topicals with minimal relief. He states he ended up going to the chiropractor and that it did actually end up helping for about 7 weeks. He states then however the pain came back and he went 2 or 3 times additionally however it made no change to the overall pain. Patient states that he then went to his primary care and that they ended up ordering different medications such as gabapentin, meloxicam, Flexeril and oral steroids. He states he has tried these and he is still struggling to do activities of daily living such as cooking or cleaning or even simple ambulation. Today he is using a cane for assistance. Patient does describe it as a sharp, throbbing, aching sensation that is worse with increased activity. Patient does state that he ended up having to complete physical therapy in order to get the MRI. He states he is scheduled for a neurosurgeon appointment next . Patient is interested in any help we may be able to to provide. He states that the overall low back pain did seem like it moved down into his hip now and radiates down the entire extremity. He is currently managed with gabapentin 100 mg from his PCP. His Patrick has been reviewed and is appropriate. CC: Bonita Gallo APRN [facility] Disclaimer: The information contained in this section may have been updated after the patient was seen, as this information can be updated by other users. Medical History Allergic rhinitis Family History (Updated 11/26/23 @ 10:17 by Nini Breen RN) Other Unknown family medical history Social History (Updated 11/26/23 @ 10:18 by Nini Breen RN) Smoking Status: Never smoker alcohol intake: never current occupational status: other Travel in the last 8 weeks: None housing: house Review of Systems Review of Systems Review of systems:: pertinent systems reviewed and negative unless documented below Review of systems (narrative): Review of Systems: General: No recent weight changes, no fever, no sleep disturbances Respiratory: No cough, no shortness of air, no recurring pulmonary infections Cardiovascular/peripheral vascular: No chest pain, no palpitations, no edema, no shortness of breath Gastrointestinal: No new onset incontinence, normal bowel movements reported Genitourinary: No new onset incontinence Musculoskeletal: Low back pain, right hip pain, right leg pain Psychiatric: [Normal mood/affect] Neurological: [Denies weakness in extremities], [denies balance issues] Meds Home Medications and Allergies Home Medications ?Medication ?Instructions ?Recorded ?Confirmed ?Type cyclobenzaprine 10 mg tablet 10 mg PO HS PRN muscle spasm #30 10/24/23 11/26/23 Rx tabs meloxicam 15 mg tablet 15 mg PO DAILY #30 tabs 10/24/23 11/26/23 Rx gabapentin 100 mg capsule 100 mg PO Q8H 30 days #90 caps 11/12/23 11/26/23 Rx cetirizine 10 mg tablet 10 mg PO DAILY 11/14/23 11/26/23 History losartan 25 mg tablet 25 mg PO DAILY #30 tabs 11/14/23 11/26/23 Rx montelukast 10 mg tablet 10 mg PO DAILY 11/14/23 11/26/23 History omeprazole 40 mg capsule,delayed 40 mg PO DAILY 11/14/23 11/26/23 History release baclofen 10 mg tablet 10 mg PO TID #42 tabs 11/26/23 Rx New Prescriptions to Start Prescriptions: Bonita Ortega Allergies Allergy/AdvReac Type Severity Reaction Status Date / Time No Known Allergies Allergy Verified 11/14/23 09:26 Objective Narrative: Physical Exam: General: Alert and oriented x3, no acute distress, pleasant and cooperative Lungs: Respirations even and unlabored, symmetrical chest expansion Eyes: PERRL Musculoskeletal: Flexion and extension of lumbar [spine] somewhat guarded secondary to pain, [antalgic gait noted] positive right leg raise with decreased sensation to light touch and decreased reflexes Neurological: Speech clear, no gross sensory deficit Additional findings Additional findings: FINDINGS: Multiplanar MR imaging of the lumbar spine was performed without contrast. On the sagittal T2-weighted images, there is disc degeneration at the L5-S1 level. The vertebral alignment is normal. There is no evidence of fracture. No bony mass is identified. The conus has an unremarkable appearance. No significant canal stenosis is identified. L1-2: No significant central canal stenosis or neuroforaminal narrowing. L2-3: No significant central canal stenosis or neuroforaminal narrowing. L3-4: An annular bulge is present with mild right neural foraminal narrowing. L4-5: An annular bulge is present with severe right and mild left neural foraminal narrowing. L5-S1: An annular bulge is present with a right foraminal extruded disc, which produces right S1 nerve root impingement, moderate right and mild left neural foraminal narrowing. IMPRESSION: Lumbar degenerative change, most severe at the L5-S1 level with a right foraminal extruded disc which impinges on the right S1 nerve root and produces moderate right neural foraminal narrowing. Reviewed, Interpreted and Dictated by Tim Macedo III, MD Transcribed by Peyton Bowman Authenticated and [facility] Assessment and Plan *Assessment and plan (1) Degenerative disc disease, lumbar: Status: Acute Category: Medical Code(s): M51.36 - Other intervertebral disc degeneration, lumbar region (2) Lumbar radiculopathy: Status: Acute Category: Medical Code(s): M54.16 - Radiculopathy, lumbar region (3) Lumbar stenosis: Status: Acute Category: Medical Code(s): M48.061 - Spinal stenosis, lumbar region without neurogenic claudication (4) Lumbar nerve root impingement: Status: Acute Category: Medical Code(s): M54.16 - Radiculopathy, lumbar region Plan Patient is experiencing significant pain from his low back down into his right hip and right leg. Patient did have limited range of motion with a positive right leg raise and decreased sensation to light touch. I did discuss with the patient that he may benefit from a right transforaminal epidural steroid injection. Risk and benefits were discussed with patient and he would like to proceed forward with this plan of care. Patient has tried and failed conservative therapy including recent physical therapy and chiropractor therapy as well as continued at home stretching exercise that was physician guided. Patient was counseled to discuss with the neurosurgeon whether or not any contraindications to the injection and if they are doll to call us and we can cancel this. Patient was counseled that a lot of times for back surgery they do want a 3-month window with no steroid use. Patient acknowledges understanding. Patient will be scheduled for a right transforaminal epidural steroid injection L4-L5 and L5-S1 under fluoroscopy. I will also order the patient baclofen 10 mg 3 times daily. Patient has also been given compounded cream and is going to try this. Patient has been instructed to contact the clinic with any concerns before the next appointment. Dr. Begum has reviewed this note and agrees with this plan of care. This note was dictated using voice recognition software and make contain errors or omissions. All injections are used with Lidocaine or Bupivacaine and Depo Medrol.
[2023-11-26 10:17] VITALS: BP 158/89; PULSE 79; RESP 18; O2SAT 98; BMI 31.7
== END 2023-11-26 23:59 | disposition home or self-care (01) ==
PROVIDERS: PCP Nurse Practitioner Family; Visit Provider Nurse Practitioner Family
DX: M51.16 Intervertebral disc disorders with radiculopathy, lumbar region (principal); M48.061 Spinal stenosis, lumbar region without neurogenic claudication
CPT/HCPCS: 99202; G0463

== ENCOUNTER 2024-02-13 09:00 | Outpatient (RCR) | payer OTHER, SELFPAY | END 2024-02-13 23:59 | disposition home or self-care (01) | LOC: PT 09:00 | PROVIDERS: Visit Provider Orthopaedic Surgery | DX: M54.50 Low back pain, unspecified (principal); Z98.890 Other specified postprocedural states | CPT/HCPCS: 97110; 97163 ==

== ENCOUNTER 2024-06-21 16:46 | Outpatient (CLI) | payer OTHER, SELFPAY ==
[2024-06-21 16:58] LABS: Microscopic, Urine URINE MICROSCOPIC (MICROSCOPIC)
[2024-06-21 17:33] LABS: Basophils % 0.4 % (0.1-2.0); Eosinophils # 0.1 K/mm3 (0.0-0.4); Eosinophils % 1.5 % (0.1-12.0); Hematocrit 44.6 % (42.0-52.0); Hemoglobin 15.6 g/dL (14.1-18.0); Lymphocytes # 2.2 K/mm3 (0.7-4.5); Lymphocytes % 31.9 % (10-50); Mean Corpuscular Hemoglobin 29.7 pg (27.0-31.2); Mean Corpuscular Volume 84.8 fl (80-94); Monocytes # 0.4 K/mm3 (0.1-1.0); Monocytes % 5.7 % (1.7-9.3); Neutrophils # 4.1 K/mm3 (1.8-7.8); Neutrophils % 60.2 % (37.0-80.0); Nucleated Red Blood Cells # 0 10^3/uL; Nucleated Red Blood Cells % 0 %; Platelet Count 173 K/mm3 (142-424); Red Blood Count 5.26 M/mm3 (4.60-6.20); Red Cell Distribution Width 12.3 % (11.5-17.5); Red Cell Distribution Width-SD 37.8 fL; White Blood Count 6.8 K/mm3 (4.8-10.8)
[2024-06-21 17:35] LABS: Appearance,Urine CLEAR (Clear); Bilirubin,Urine Negative (Negative); Blood, Urine Negative (Negative); Color,Urine YELLOW (Yellow); Glucose,Urine (UA) Negative (Negative); Ketones,Urine Negative (Negative); Leukocyte Esterase,Urine Negative (Negative); Nitrate,Urine Negative (Negative); Protein,Urine Negative (Negative); Specific Gravity, Urine 1.025 (1.005-1.030); Urobilinogen,Urine 0.2 EU/dl (0.2)
[2024-06-21 17:47] LABS: Total Protein,Urine Random < 5.0 mg/dL (0.0-12.0)
[2024-06-21 18:28] LABS: Albumin Level 5.2 g/dl (3.5-5.0)
[2024-06-21 18:29] LABS: Chloride 104 mmol/L (98-107); Potassium 4.7 mmoL/L (3.5-5.1); Sodium 140 mmol/L (136-145)
[2024-06-21 18:31] LABS: Alanine Aminotransferase 54 U/L (12-78); Albumin/Globulin Ratio 1.7 (1.1-1.8); Alkaline Phosphatase 80 U/L (38-126); Anion Gap 15.7 mEq/L (5-15); Aspartate Amino Transferase 47 U/L (17-59); Bilirubin,Total 1.2 mg/dl (0.2-1.3); Blood Urea Nitrogen 14 mg/dl (9-20); Carbon Dioxide 25 mmol/L (22.0-30.0); Estimated Glomerular Filt Rate 81 ml/min (>60); GFR (African American) 98 ML/MIN (>60); Globulin 3.1 g/dL (1.3-3.2); Iron 107 ug/dL (49-181); Total Protein,Serum 8.3 g/dl (6.3-8.2)
[2024-06-21 18:32] LABS: Chol/HDL Ratio 5.7 (1-3.5); Cholesterol 212 mg/dl (140-200); Glucose 95 mg/dl (74-100); HDL Cholesterol 37 mg/dl (40-60); Triglycerides 228 mg/dl (30-150); VLDL Cholesterol 46 mg/dL (0-40)
[2024-06-21 18:43] LABS: Total Iron Binding Capacity 398 ug/dL (261-462)
[2024-06-21 18:46] LABS: Direct LDL Cholesterol 125.88 mg/dL (100-129)
[2024-06-21 19:00] LABS: Hepatitis C Ab Qual. W/ RFX NEGATIVE (Negative)
[2024-06-21 19:12] LABS: HIV Combo NEGATIVE (Negative)
[2024-06-21 19:14] LABS: Thyroid Stimulating Hormone 1.57 uIU/mL (0.465-4.68)
[2024-06-21 19:16] LABS: Ferritin 153 ng/ml (17.9-464)
[2024-06-21 19:22] LABS: 25-OH Vitamin D, Total 41.5 ng/mL (30-100)
[2024-06-21 19:26] LABS: Free T4 (Free Thyroxine) 0.96 ng/dl (0.78-2.19)
[2024-06-21 20:13] LABS: Vitamin B12 615 pg/mL (239-931)
== END 2024-06-21 23:59 | disposition home or self-care (01) ==
LOC: RT 16:46
PROVIDERS: PCP Internal Medicine; Visit Provider Nurse Practitioner Family
DX: R00.2 Palpitations (principal); R42 Dizziness and giddiness; I10 Essential (primary) hypertension; R53.83 Other fatigue; J02.9 Acute pharyngitis, unspecified; Z68.31 Body mass index [BMI] 31.0-31.9, adult; Z11.4 Encounter for screening for human immunodeficiency virus [HIV]; Z11.59 Encounter for screening for other viral diseases; Z13.1 Encounter for screening for diabetes mellitus
CPT/HCPCS: 80053; 80061; 81001; 82306; 82607; 82728; 83036; 83540; 83550; 84156; 84439; 84443; 85025; 86803; 87070; 87086; 87389; 93225; 93227

== ENCOUNTER 2024-07-01 13:45 | Outpatient (CLI) | payer OTHER, SELFPAY ==
--- NOTE | 2024-07-01 | CA_ITS ---
APPROVED REPORT EXAM: Comprehensive 2D, Doppler, and color-flow Echocardiogram Roentgenologist: Jacy Alberto RT(R) Ht: 5 ft 10 in Wt: 219lbs BSA: 2.17 BP: 148/98 mmHg Indications: palpitations, dizziness, HTN, CP, snoring. 2D Dimensions LVEF (Calvo's) 51.50 % M: 52 - 72 LV Volume 106.00 mL M: 62 - 150 LV Volume Index 48.8 mL/m2 M: 34 - 74 EF AP4 55.90 % EF AP2 50.6 % EF BP 51.5 % GL Strain -13.7 % M-Mode Dimensions RVDd 3.70 cm (0.9-2.6) LA Diam 3.27 cm (1.9-4.0) LVDd 4.02 cm (3.5-5.7) LVDs 2.98 cm (3.5-5.7) IVSd 0.93 cm (0.6-1.1) PWd 0.93 cm (0.6-1.1) EF (Teich) 51.40% FS 25.90% EDV (Teich) 70.80 mL ESV (Teich) 34.40 mL LV Diastology E Decel Time 220 (160-240 msec) E/A Ratio 0.9 Mitral Valve MV E Max Gurmeet. 52.0 (40-130 cm/s) MV A Velocity 59.0 (40-130 cm/s) E/A Ratio 0.88 MV PHT 64.0 ms Left Ventricle The left ventricle is normal size. The left ventricular systolic function is normal. The left ventricular ejection fraction is within the normal range. There is increased LV wall thickness. There is normal LV segmental wall motion. Diastolic function is normal. LVEF is 55%. Right Ventricle Right ventricle is mildly dilated. The right ventricular systolic function is normal. Atria The left atrium is mildly dilated. The right atrium size is normal. There is no Doppler evidence of interatrial shunt. Aortic Valve Aortic valve is mildly thickened. There is no aortic valvular stenosis. No aortic regurgitation is present. Mitral Valve The mitral valve is normal in structure. No evidence of mitral valve stenosis. There is no mitral valve regurgitation noted. Tricuspid Valve The tricuspid valve leaflets are thin and pliable. Trace tricuspid regurgitation. There is insufficient TR jet to estimate RVSP. Pulmonic Valve The pulmonary valve is normal in structure. Trace pulmonic regurgitation. Great Vessels The aortic root is normal in size. IVC is normal in size and collapses >50% with inspiration. Pericardium There is no pericardial effusion. Other Information Study Quality: Fair Conclusion Normal biventricular systolic function. Mild RV dilation. Mild LA dilation. No significant valvular stenosis or regurgitation. Electronically signed by : Morena Marti MD 07/07/2024 13:54:20
== END 2024-07-01 23:59 | disposition home or self-care (01) ==
LOC: RT 13:45
PROVIDERS: PCP Internal Medicine; Visit Provider Nurse Practitioner Family
DX: I51.7 Cardiomegaly (principal); R42 Dizziness and giddiness; R00.2 Palpitations
CPT/HCPCS: 93306

== ENCOUNTER → 2024-08-20 12:01 | Outpatient (CLI) | payer OTHER, SELFPAY | LOC: SL 12:03 | PROVIDERS: PCP Nurse Practitioner Family; Visit Provider Nurse Practitioner Family | DX: R42 Dizziness and giddiness (principal); R00.2 Palpitations; I10 Essential (primary) hypertension; G47.33 Obstructive sleep apnea (adult) (pediatric) | CPT/HCPCS: G0399 ==